=== PATIENT | male | born 1990 | race Caucasian/White ===

== ENCOUNTER → 2021-08-10 14:37 | Outpatient (CLI) | payer OTHER, SELFPAY ==
[2021-08-10 17:31] LABS: COVID19 -Nasal RAPID Negative (Negative)
== END ==
PROVIDERS: Referring Provider Family Medicine Sleep Medicine; Visit Provider Family Medicine Sleep Medicine
DX: Z20.822 Contact with and (suspected) exposure to COVID-19 (principal)
CPT/HCPCS: 87635; C9803

== ENCOUNTER 2021-08-12 07:59 | Day surgery (SDC) | payer OTHER, SELFPAY ==
--- NOTE | 2021-08-12 | PATH_ITS ---
[facility] Accession Number: [id number] . 01 Material submitted: . PART A: body - RANDOM BIOPSY PART B: gastrointestinal site - GASTRIC BIOPSY; RANDOM . 01 Clinical history: . A: R/O CELIAC . 02 Diagnosis: A. Random Biopsy: Duodenal mucosa with no diagnostic abnormality. Negative for active inflammation, features of sprue, dysplasia, or malignancy. . B. Gastric Biopsy, Random: Portions of gastric antral mucosa with mild chronic inflammation. Negative for Helicobacter organisms by immunohistochemistry. Negative for intestinal metaplasia. Negative for dysplasia or malignancy. [facility] 08/18/2021 1523 Local . 02 Electronically signed: . Maira Hull MD, Pathologist NPI- [id number] . 01 Gross description: . Part A: RANDOM BIOPSY: Received in formalin are 2 fragment(s) of gong, soft tissue measuring 0.4 x 0.2 x 0.1 cm to 0.1 x 0.1 x 0.1 cm submitted entirely in 1 cassette(s) Part B: GASTRIC BIOPSY; RANDOM: Received in formalin are 2 fragment(s) of gong, soft tissue measuring 0.3 x 0.3 x 0.1 cm to 0.1 x 0.1 x 0.1 cm submitted entirely in 1 cassette(s) /[facility] 08/14/2021 1307 Local . 02 Microscopic: . B. An immunohistochemical stain was performed to evaluate for Helicobacter organisms and is negative for Helicobacter organisms by immunohistochemistry studies. The control stain showed appropriate reactivity. . * This test was developed and its performance characteristics determined by [employer]. It has not been cleared or approved by the U.S. Food and Drug Administration. The FDA has determined that such clearance or approval is not necessary. This test is used for clinical purposes. It should not be regarded as investigational or for research. . 02 Pathologist provided ICD-10: K29.70 . 02 CPT . 956720, 762105, Y34298 Performed at: 01 [facility] [address] [id number] MD Bo Snider MD Phone: [phone] Performed at: 02 [facility] [address] [place], [place] [id number] MD Nasra Wooten MD Phone: [phone]
[2021-08-12 08:13] VITALS: BP 114/67; PULSE 78; RESP 16; TEMP 36.5; O2SAT 100; BMI 22.8
--- NOTE | 2021-08-12 09:29 | PM.PREOP ---
Pre-operative Note COVID-19 COVID-19 status: Negative Interval Note History & Physical reviewed/Exam performed by Physician: Yes Changes to H&P: No ASA Class (for procedural sedation): I
--- NOTE | 2021-08-12 09:30 | PM.OP.EGD ---
Operative Date/Time/Diagnoses Date of procedure: 08/12/21 Pre-op diagnosis: GERD with heartburn and cough incompletely responsive to medications. Procedure & Clinicians Study performed: EGD Indications: Unresponsive GERD to medications. Also with cough. Also with loose stool Surgeon: Cheri Quinn Procedure Notes Procedure in detail: After informed consent was obtained patient was placed in left lateral decubitus position. The video upper scope placed into the oropharynx and with the patient's help swallowed into the esophagus. The esophagus stomach and duodenum were carefully examined. On withdrawal, retroflexed view the GE junction was performed. The scope was removed. The patient tolerated procedure well. Blood loss none Complications none Sedation mac Findings 1. Normal esophagus with completely normal squamocolumnar junction at 42 cm. 2. Streaky antral erythema biopsies taken to rule out Helicobacter Three. No hiatal hernia detected 4. Normal duodenal bulb and sweep biopsies taken to rule out celiac. Patient will be set up for manometry and 24 hour pH study while on medications of omeprazole b.i.d.. He can then return to see Shaniqua Michaud in the office.
[2021-08-12 09:33] VITALS: BP 160/70; PULSE 90; RESP 13; TEMP 36.6; O2SAT 97
[2021-08-12 09:38] VITALS: BP 105/70; PULSE 74; RESP 12; O2SAT 99
[2021-08-12 09:43] VITALS: BP 106/71; PULSE 71; RESP 16; TEMP 36.4; O2SAT 99
[2021-08-12 09:55] VITALS: BP 106/71; PULSE 70; RESP 16; TEMP 36.8; O2SAT 98
== END 2021-08-12 10:20 | disposition home or self-care (01) ==
PROVIDERS: Admitting Provider Nurse Anesthetist, Certified Registered; Referring Provider Internal Medicine Gastroenterology; Visit Provider Internal Medicine Gastroenterology
PROC: 0DJ08ZZ Inspection of Upper Intestinal Tract, Via Natural or Artificial Opening Endoscopic (ICD-10-PCS; CPT 43235; principal; 2021-08-12 09:00)
DX: K21.9 Gastro-esophageal reflux disease without esophagitis (principal); R19.7 Diarrhea, unspecified; R05.8 Other specified cough; K29.50 Unspecified chronic gastritis without bleeding
CPT/HCPCS: 43239

== ENCOUNTER → 2023-02-22 08:50 | Outpatient (CLI) | payer OTHER, SELFPAY ==
--- NOTE | 2023-02-22 08:53 | DI.ECHO.S_ITS ---
[facility]---------+ [facility] +---------+ : : [address] [place] : : : : [address] : : : : Phone: [phone]+ Echocardiogram Report + + :Name: GARRETT MALONEY Study Date: 02/22/2023 Height: 67 in : :[facility] ReadingLocation: Weight: 145 lb : : Gender: Male BSA: 1.8 m2 : :: 1990 Age: 33 yrs BP: 122/77 mmHg: :Reason For Study: CHEST PAIN : :Ordering Physician: CHELA, : :GAVIOTA Performed By: [place] : :Referring: GAVIOTA YORK : + + Interpretation Summary The ejection fraction is estimated to be 60-65%. Diastolic parameters suggest probable normal left ventricular diastolic function and normal filling pressures. The right ventricle is normal in size and function. No significant valvular abnormalities. Pulmonary artery pressures cannot be estimated because of the lack of a measurable TR jet velocity. Procedure: A two-dimensional transthoracic echocardiogram with color flow and Doppler was performed. The study quality was technically adequate. There is no prior echocardiogram noted for this patient. The patient was in sinus rhythm with heart rates between 62-70 bpm during the exam. Left Ventricle: The left ventricle is normal in size and wall thickness. The ejection fraction is estimated to be 60-65%. Diastolic parameters suggest probable normal left ventricular diastolic function and normal filling pressures. Right Ventricle: The right ventricle is normal in size and function. Atria: The left atrial size is normal. Right atrial size is normal. There is no Doppler evidence for an interatrial shunt. Mitral Valve: The mitral valve is normal in structure and function. There is trace mitral regurgitation. Aortic Valve: The aortic valve is trileaflet. The aortic valve opens well. There is no aortic valve stenosis. No aortic regurgitation is present. Tricuspid Valve: The tricuspid valve is normal in structure and function. There is trace tricuspid regurgitation. Pulmonary artery pressures cannot be estimated because of the lack of a measurable TR jet velocity. Pulmonic Valve: The pulmonic valve is not well seen, but is grossly normal. There is no pulmonic valvular regurgitation. Great Vessels: The aortic root is normal size. The ascending aorta could not be visualized. The IVC is of normal diameter and collapses greater than 50% with a sniff. This suggests a low right atrial pressure of 3 mm Hg. Pericardium/ Pleura There is no pericardial effusion. There is no pleural effusion. MMode/2D Measurements & Calculations LVIDd: 4.6 cm LVOT diam: 2.2 cm LVIDs: 3.0 cm Ao root diam: 3.2 cm FS: 35.5 % Ao Arch Diam (Prox Trans): 2.2 cm IVSd: 0.60 cm LVPWd: 0.63 cm LV wiggins. diameter/BSA (cm/m^2): 2.6 LV sys. diameter/BSA (cm/m^2): 1.7 LA A2 area: 13.7 cm2 RA long axis: 4.0 cm LA A4 area: 11.1 cm2 RA area: 9.3 cm2 LA length (vol): 3.6 cm RA vol: 18.3 ml LA vol: 35.7 ml RA : 10.4 ml/m2 LA vol index: 20.2 ml/m2 IVC diam: 1.9 cm RVD1 (basal): 3.2 cm RVD2 (mid): 3.1 cm TAPSE: 2.2 cm Doppler Measurements & Calculations Ao V2 max: 110.6 cm/sec LVOT Max Nael: 112.6 cm/sec Ao V2 mean: 82.6 cm/sec LV V1 max P.1 mmHg Ao max P.9 mmHg LV V1 VTI: 22.2 cm Ao mean P.0 mmHg JERAMY(I,D): 3.7 cm2 Ao V2 VTI: 23.6 cm JERAMY(V,D): 4.0 cm2 sev ratio: 0.94 JERAMY indexed to BSA (cm^2/m^2): 2.1 MV E max nael: 79.2 cm/sec PA V2 max: 102.5 cm/sec MV A max nael: 36.2 cm/sec PA V2 mean: 68.5 cm/sec MV E/A: 2.2 PA mean P.1 mmHg Med Peak E' Nael: 16.3 cm/sec PA pr(Accel): 13.9 mmHg E/E' med: 4.9 Lat Peak E' Nael: 17.8 cm/sec E/E' lat: 4.4 E/e' average: 4.7 MV dec time: 0.22 sec SV(LVOT): 86.4 ml Reading Physician:01:34 PM
== END ==
PROVIDERS: Referring Provider Orthopaedic Surgery; Visit Provider Orthopaedic Surgery
DX: R07.9 Chest pain, unspecified (principal)
CPT/HCPCS: 93306